=== PATIENT | female | born 1975 | race African-American/Black ===

== ENCOUNTER 2017-02-04 12:28 | Emergency (ER) | payer OTHER ==
[~2017-02-04] VITALS: Ht 170.2 cm; Wt 110.0 kg
[2017-02-04] MEDS ORDERED: KETOROLAC 60MG/2ML VIAL IM ONE (13:45)
[2017-02-04 14:31] VITALS: BP 152/82
== END 2017-02-04 15:20 | disposition home or self-care (01) ==
LOC: ER 12:42
DX: S16.1XXA Strain of muscle, fascia and tendon at neck level, initial encounter (principal); S39.012A Strain of muscle, fascia and tendon of lower back, initial encounter; E11.9 Type 2 diabetes mellitus without complications; E78.00 Pure hypercholesterolemia, unspecified; Z79.4 Long term (current) use of insulin; V47.5XXA Car driver injured in collision with fixed or stationary object in traffic accident, initial encounter; Y93.89 Activity, other specified; Y92.89 Other specified places as the place of occurrence of the external cause; Y99.8 Other external cause status
CPT/HCPCS: 72125; 96372; 99284; J1885